=== PATIENT | female | born 1950 | race Caucasian/White ===

== ENCOUNTER 2017-06-25 16:01 | Emergency (ER) | payer MEDICARE, BC ==
[2017-06-25] MEDS ORDERED: PERCOCET10 PO (16:17)
[2017-06-25] MEDS ORDERED: KLONOPIN0.5 M1 PO (16:18)
[2017-06-25] MEDS ORDERED: NEURONTIN600 MG PO (16:18)
[2017-06-25] MEDS ORDERED: PROZAC40 M1 PO (16:18)
[2017-06-25] MEDS ORDERED: OMEPRAZOLE40 M1 PO (16:19)
[2017-06-25] MEDS ORDERED: PRINIVIL10 MG PO (16:19)
== END 2017-06-25 17:24 | disposition home or self-care (01) ==
LOC: SED 16:01
DX: G89.29 Other chronic pain (principal); Z76.0 Encounter for issue of repeat prescription; K21.9 Gastro-esophageal reflux disease without esophagitis; I10 Essential (primary) hypertension; F32.9 Major depressive disorder, single episode, unspecified; Z90.710 Acquired absence of both cervix and uterus; F17.210 Nicotine dependence, cigarettes, uncomplicated; Z88.0 Allergy status to penicillin
CPT/HCPCS: 99281